=== PATIENT | female | born 1980 | race Caucasian/White ===

== ENCOUNTER 2019-01-27 05:25 | Emergency (ER) | payer OTHER ==
[~2019-01-27] VITALS: Ht 170.2 cm; Wt 61.4 kg
[~2019-01-27 05:25] MED LIST: LEVAQUIN750 MG PO; NICODERM C1 PATCH .1 TRANSDERM
[2019-01-27 05:28] VITALS: BP 139/80; Ht 170.2 cm; Wt 61.4 kg
[2019-01-27] MEDS ORDERED: LEXAPRO20 MG PO (05:30)
[2019-01-27] MEDS ORDERED: KLONOPIN1 MG PO (05:30)
[2019-01-27] MEDS ORDERED: TRAZODONE HCL150 MG PO (05:30)
[2019-01-27] MEDS ORDERED: [UNRECOGNIZED DRUG - REMARK] (05:31)
== END 2019-01-27 06:23 | disposition left against medical advice (07) ==
LOC: D.ER 05:25
DX: T14.8XXA Other injury of unspecified body region, initial encounter (principal); Y04.2XXA Assault by strike against or bumped into by another person, initial encounter; Y93.89 Activity, other specified; Y92.89 Other specified places as the place of occurrence of the external cause